=== PATIENT | female | born 1955 | race Caucasian/White ===

== ENCOUNTER → 2017-04-04 | Outpatient (CLI) | payer BC ==
--- NOTE | 2017-04-04 11:54 | Diagnostic Imaging Report ---
Renal duplex ultrasound. INDICATION: Hypertension. FINDINGS: The right kidney is 10.8 cm and the left kidney is 11.4 cm in length. There is no hydronephrosis or focal lesion. The renal artery velocities on the right side are 150, 157, and 67 cm/s from proximal to distal and on the left are 107, 122 and 96 cm/s from proximal to distal. The resistive index in the right kidney is in the range of 0.67-0.74 and on the left side is in the range of 0.68-0.78. IMPRESSION: No evidence of significant renal artery stenosis. Dictated by: Dictated on workstation # [id number]
== END ==
LOC: RAD 08:01
PROVIDERS: ATTEND Internal Medicine Interventional Cardiology
DX: I10 Essential (primary) hypertension (principal)
CPT/HCPCS: 93975

== ENCOUNTER → 2017-04-09 | Outpatient (CLI) | payer BC | LOC: CARD 10:41 → EDUNIT# 11:00 | PROVIDERS: ATTEND Internal Medicine Interventional Cardiology | DX: I10 Essential (primary) hypertension (principal) | CPT/HCPCS: 93306 ==

== ENCOUNTER → 2023-01-16 | Outpatient (CLI) | payer BC ==
--- NOTE | 2023-01-16 17:10 | Diagnostic Imaging Report ---
EXAMINATION: Chest, 2 views. HISTORY: Short of breath. COMPARISON: None available. FINDINGS: Heart is enlarged. There is mild edema. There are small effusions. No pneumothorax. IMPRESSION: Mild edema and small effusions. Dictated by: Dictated on workstation # [id number]
== END ==
LOC: RAD FS 14:32
PROVIDERS: ATTEND Family Medicine
DX: J90 Pleural effusion, not elsewhere classified (principal); R60.0 Localized edema
CPT/HCPCS: 71046